=== PATIENT | female | born 1955 | race Caucasian/White ===

== ENCOUNTER 2021-02-24 08:24 | Emergency (ER) | payer OTHER ==
[~2021-02-24] VITALS: Ht 154.9 cm; Wt 79.8 kg
[~2021-02-24 08:24] MED LIST: AMOX1TAB12 PO; CELEXA10 MG; DIOVAN HCT 160-1 TAB; NEURONTIN300 MG; TUSSI PRES-B L120 M1 PO; WELLBUTRIN XL300 MG
[2021-02-24] MEDS ORDERED: ALPRAZOLAM0.5 MG PO (08:30)
[2021-02-24] MEDS ORDERED: METFORMIN HCL500 M4 PO (08:30)
[2021-02-24] MEDS ORDERED: BUPROPION XL300 MG PO (08:30)
[2021-02-24] MEDS ORDERED: ZITHROMAX500 MG PO (14:08)
== END 2021-02-24 14:47 ==
LOC: ER 08:24
DX: J06.9 Acute upper respiratory infection, unspecified (principal); B34.9 Viral infection, unspecified; Z03.818 Encounter for observation for suspected exposure to other biological agents ruled out; F41.9 Anxiety disorder, unspecified; F41.0 Panic disorder [episodic paroxysmal anxiety]